=== PATIENT | male | born 1955 | race African-American/Black ===

== ENCOUNTER 2019-04-12 15:13 | Emergency (ER) | payer OTHER ==
[~2019-04-12] VITALS: Ht 193 cm; Wt 100.0 kg
[2019-04-12] MEDS ORDERED: ONDANSETRON HCL 4MG/2ML INJ IV STA (16:13)
[2019-04-12] MEDS ORDERED: SODIUM CHLORIDE 0.9% 1,000 ML IV ONE (16:13)
[2019-04-12] MEDS ORDERED: ASPIRIN 81MG TABLET PO ONE (16:15)
[2019-04-12 17:15] LABS: BASOPHILS % 0.6 % (0.0-2.0); EOSINOPHILS % 2.6 % (0.0-5.0); HEMATOCRIT. 40.6 % (42.0-52.0); HEMOGLOBIN. 13.8 g/dL (14.0-18.0); LYMPHOCYTES % 14.9 % (20.0-50.0); MEAN CORPUSCULAR HEMOGLOBIN 30.3 pg (28.0-32.0); MEAN CORPUSCULAR VOLUME 89.4 fL (80.0-94.0); MEAN PLATELET VOLUME 10.5 fl (7.4-10.4); MONOCYTES % 6.4 % (2.0-8.0); NEUTROPHILS % 75.5 % (40.0-76.0); PLATELET 108 x1000/uL (130-400); RED BLOOD CELL COUNT 4.54 mill/uL (4.7-6.1); RED CELL DISTRIBUTION WIDTH 13.9 % (11.6-14.6)
[2019-04-12 17:19] LABS: CHLORIDE 109 mEq/L (98-107)
[2019-04-12] MEDS ORDERED: SODIUM CHLORIDE 0.9% 1,000 ML IV NR (18:10)
[2019-04-12 20:52] VITALS: BP 133/67
== END 2019-04-12 21:05 | disposition short-term general hospital (02) ==
LOC: ER 15:13 → CANBEDREQ 21:30
DX: R07.89 Other chest pain (principal); R53.1 Weakness; K85.90 Acute pancreatitis without necrosis or infection, unspecified
CPT/HCPCS: 36415; 71045; 80053; 82962; 83605; 83690; 83880; 84484; 85025; 93005; 96374; 99285; J2405; J7030